=== PATIENT | female | born 1940 | race Caucasian/White ===

== ENCOUNTER → 2016-03-20 | Outpatient (CLI) | payer OTHER, BC ==
[~2016-03-20] MED LIST: ASPIRIN325 MG PO; BENICAR20 MG PO; CALCIUM 600 +1 EAC1 PO; CLOPIDOGREL75 MG PO; DAILY VITAMIN1 EAC8 PO; DONEPEZIL HCL10 MG PO; DULCOLAX10 MG PR; FENTANYL1 EAC5 TD; FLUOXETINE HCL40 MG PO; FORTEO20 MICROGR SC; GABAPENTIN300 MG PO; HYDROMORPHONE HC4 MG PO; ISTALOL5 ML BOTH EYES; LEVETIRACETAM500 MG PO; LOVENOX40 MG/0.4 SC; MECLIZINE HCL25 MG PO; MILK OF MAGNESI10 ML PO; NAMENDA XR7 MG PO; OXYCODONE HCL15 MG PO; PANTOPRAZOLE SO40 MG PO; ROPINIROLE HCL0.5 MG PO; SIMVASTATIN20 MG PO; TYLENOL REGULA325 MG PO; XALATAN2.5 ML BOTH EYES; XANAX0.5 MG PO
== END | disposition home or self-care (01) ==
DX: R13.10 Dysphagia, unspecified (principal); J69.0 Pneumonitis due to inhalation of food and vomit
CPT/HCPCS: 92611 GN; G8996 GN; G8997 GN; G8998 GN